=== PATIENT | male | born 1970 | race Caucasian/White ===

== ENCOUNTER 2018-01-04 10:22 | Day surgery (SDC) | payer MEDICAID | END 2018-01-04 11:45 | disposition home or self-care (01) | LOC: SSTAY O 10:22 | PROVIDERS: ATTEND Family Medicine | DX: B37.81 Candidal esophagitis (principal); J45.998 Other asthma; F33.2 Major depressive disorder, recurrent severe without psychotic features; F17.210 Nicotine dependence, cigarettes, uncomplicated; Z87.11 Personal history of peptic ulcer disease; Z87.2 Personal history of diseases of the skin and subcutaneous tissue; Z86.19 Personal history of other infectious and parasitic diseases; Z79.2 Long term (current) use of antibiotics; Z79.899 Other long term (current) drug therapy | CPT/HCPCS: 36569; 76937 ==